=== PATIENT | female | born 1965 | race African-American/Black ===

== ENCOUNTER 2021-09-29 14:49 | Inpatient (IN) ==
[2021-09-29] MEDS ORDERED: IBUPROFEN 800 MG TABLET PO STA (15:17)
[2021-09-29] MEDS ORDERED: IBUPROFEN 800 MG TABLET ONE (15:18)
[2021-09-29] MEDS ORDERED: SODIUM CHLORIDE 0.9% 1,000 ML IV STA (16:31)
[2021-09-29 18:08] LABS: Basophils % 0.2 % (0.0-0.8); Eosinophils # 0.1 10*3/uL (0.0-0.87); Eosinophils % 1.7 % (0.00-10.9); Hematocrit 35.2 VOL% (35.7-47.0); Hemoglobin 11.1 GM/DL (12.0-16.0); Immature Granulocytes % 0.2 %; Immature Granulocytes Absolute 0.01 #; Lymphocytes # 0.9 10*3/uL (1.4-4.0); Lymphocytes % 17.7 % (21.3-54.2); Mean Corpuscular HGB Conc 31.5 GM/DL (32-36); Mean Corpuscular Volume 86.1 FL (87-102); Mean Platelet Volume 9.7 FL (9.6-12.0); Neutrophils % 60.2 % (38.7-73.9); Platelet Count 195 T/CUMM (130-400); Red Blood Count 4.09 MC/CUMM (3.8-5.5); Red Cell Distribution Width 13.8 % (9.3-17.3); White Blood Count 4.8 T/CUMM (4-12)
[2021-09-29] MEDS ORDERED: KETOROLAC 30 MG/1 ML VIAL IV STA (18:16)
[2021-09-29 18:28] LABS: Band Neutrophils 1 % (0-10); Eosinophils 2 % (0-10); Lymphocytes 24 % (20-55); Platelet Estimate Adequate; Total Cells Counted 100
[2021-09-29 18:31] LABS: Alanine Aminotransferase 24 U/L (13-56); Albumin 3.8 G/DL (3.4-5.0); Alkaline Phosphatase 83 U/L (45-117); Aspartate Amino Transferase 23 U/L (0-37); Bilirubin,Total < 0.39 MG/DL (0.20-1.00); Blood Urea Nitrogen 15 MG/DL (7-18); Calcium 8.8 MG/DL (8.5-10.1); Carbon Dioxide 27 MMOL/L (21-32); Chloride 106 MMOL/L (98-107); Glucose 82 MG/DL (74-106); Osmolality,Calculated 278.4 MOS/KG (273-304); Potassium 3.5 MMOL/L (3.5-5.1); Sodium 140 MMOL/L (136-145); Total Protein 6.8 G/DL (6.4-8.2)
[2021-09-29] MEDS ORDERED: GLUCAGON 1 MG VIAL IM PRN (19:11)
[2021-09-29] MEDS ORDERED: DEXTROSE 10% 250 ML BAG IV PRN (19:17)
[2021-09-29 19:49] LABS: Amorphous Crystals,Urine Occasional /HPF (Few); Bacteria,Urine Occasional /HPF (Few); Mucus,Urine Moderate /LPF (Occasional); RBC,Urine <1 /HPF (0-4); Squamous Epithelial Cell,Urine Occasional /HPF (0-10)
[2021-09-29 19:51] LABS: Urine Color Yellow (Yellow)
[2021-09-29 19:52] LABS: Bilirubin,Urine Negative (Negative); Blood, Urine Negative (Negative); Glucose,Urine (UA) Negative (Negative); Ketones,Urine Trace mg/dL (Negative); Nitrite,Urine Negative (Negative); Protein,Urine Negative (Negative); Urine Appearance Clear (Clear); Urine Specific Gravity 1.015 (1.001-1.035); Urine Urobilinogen 0.2 eU/dL (<2.0); Urine pH 5.5 (4.5-8.0)
[2021-09-29] MEDS: SODIUM CHLORIDE 0.9% 1,000 ML IV SCH (20:24)
[2021-09-29] MEDS: FAMOTIDINE 20 MG TABLET PO SCH (21:53)
[2021-09-29] MEDS: ENOXAPARIN 60 MG/0.6 ML SYRINGE SUBCUT SCH (21:53)
[2021-09-29] MEDS: LABETALOL 100 MG TABLET PO SCH (21:53)
[2021-09-30 05:01] LABS: Basophils % 0.8 % (0.0-0.8); Hematocrit 35.1 VOL% (35.7-47.0); Hemoglobin 10.9 GM/DL (12.0-16.0); Immature Granulocytes % 0.3 %; Immature Granulocytes Absolute 0.01 #; Lymphocytes # 1.7 10*3/uL (1.4-4.0); Lymphocytes % 43.6 % (21.3-54.2); Mean Corpuscular HGB Conc 31.1 GM/DL (32-36); Mean Platelet Volume 9.4 FL (9.6-12.0); Monocytes % 25.7 % (1.7-12.7); Neutrophils % 28.6 % (38.7-73.9); Platelet Count 173 T/CUMM (130-400); Red Blood Count 4.08 MC/CUMM (3.8-5.5); White Blood Count 3.9 T/CUMM (4-12)
[2021-09-30] MEDS: IBUPROFEN 400 MG TABLET PO PRN ×2 (05:08→21:56)
[2021-09-30 05:27] LABS: Alanine Aminotransferase 25 U/L (13-56); Albumin 3.2 G/DL (3.4-5.0); Alkaline Phosphatase 72 U/L (45-117); Aspartate Amino Transferase 22 U/L (0-37); Bilirubin,Total < 0.39 MG/DL (0.20-1.00); Blood Urea Nitrogen 11 MG/DL (7-18); Calcium 8.4 MG/DL (8.5-10.1); Carbon Dioxide 28 MMOL/L (21-32); Chloride 109 MMOL/L (98-107); Glucose 86 MG/DL (74-106); Osmolality,Calculated 278.3 MOS/KG (273-304); Potassium 3.3 MMOL/L (3.5-5.1); Sodium 141 MMOL/L (136-145); Total Protein 6.5 G/DL (6.4-8.2)
[2021-09-30 05:33] LABS: Lymphocytes 36 % (20-55); Platelet Estimate Adequate; Total Cells Counted 100
[2021-09-30] MEDS: ZINC GLUCONATE 50 MG TABLET PO SCH (09:32)
[2021-09-30] MEDS: LABETALOL 100 MG TABLET PO SCH ×2 (09:32→21:56)
[2021-09-30] MEDS: FAMOTIDINE 20 MG TABLET PO SCH ×2 (09:32→21:57)
[2021-09-30] MEDS: CHOLECALCIFEROL 1,000 UNIT TABLET PO SCH (09:32)
[2021-09-30] MEDS: ENOXAPARIN 60 MG/0.6 ML SYRINGE SUBCUT SCH ×2 (09:32→21:57)
[2021-09-30] MEDS: AZITHROMYCIN INJ 500 MG in SODIUM CHLORIDE 0.9% 250 ML IV SCH (09:44)
[2021-09-30] MEDS: DEXAMETHASONE 4 MG/1 ML VIAL IV SCH (09:46)
[2021-09-30] MEDS: SODIUM CHLORIDE 0.9% 1,000 ML IV SCH (17:20)
[2021-09-30] MEDS ORDERED: AMITRIPTYLINE 25 MG TABLET PO SCH (21:00)
[2021-10-01 06:18] LABS: Hematocrit 36.4 VOL% (35.7-47.0); Hemoglobin 11.6 GM/DL (12.0-16.0); Immature Granulocytes % 0.2 %; Immature Granulocytes Absolute 0.01 #; Lymphocytes # 1.9 10*3/uL (1.4-4.0); Lymphocytes % 44.6 % (21.3-54.2); Mean Corpuscular HGB Conc 31.9 GM/DL (32-36); Mean Corpuscular Volume 85.4 FL (87-102); Mean Platelet Volume 10.2 FL (9.6-12.0); Monocytes # 0.7 10*3/uL (0.11-0.8); Monocytes % 15.8 % (1.7-12.7); Neutrophils % 39.4 % (38.7-73.9); Platelet Count 207 T/CUMM (130-400); Red Blood Count 4.26 MC/CUMM (3.8-5.5); Red Cell Distribution Width 13.8 % (9.3-17.3); White Blood Count 4.2 T/CUMM (4-12)
[2021-10-01 06:33] LABS: Calcium 9.1 MG/DL (8.5-10.1); Potassium 3.3 MMOL/L (3.5-5.1)
[2021-10-01 06:41] LABS: Lymphocytes 41 % (20-55); Platelet Estimate Adequate; Total Cells Counted 100
[2021-10-01] MEDS ORDERED: DIAZEPAM 2 MG TABLET PO SCH (09:00)
[2021-10-01] MEDS ORDERED: POTASSIUM CHLORIDE 20 MEQ TABLET PO ONE (09:19)
[2021-10-01] MEDS: AZITHROMYCIN INJ 500 MG in SODIUM CHLORIDE 0.9% 250 ML IV SCH (09:52)
[2021-10-01] MEDS: LABETALOL 100 MG TABLET PO SCH (09:53)
[2021-10-01] MEDS: ZINC GLUCONATE 50 MG TABLET PO SCH (09:53)
[2021-10-01] MEDS: FAMOTIDINE 20 MG TABLET PO SCH (09:54)
[2021-10-01] MEDS: CHOLECALCIFEROL 1,000 UNIT TABLET PO SCH (09:54)
[2021-10-01] MEDS: DEXAMETHASONE 4 MG/1 ML VIAL IV SCH (09:55)
[2021-10-01] MEDS: ENOXAPARIN 60 MG/0.6 ML SYRINGE SUBCUT SCH (10:05)
[2021-10-01 12:08] VITALS: BP 131/86
== END 2021-10-01 13:25 | disposition home or self-care (01) | DRG 178 ==
LOC: N.ED 14:49 → N.EDINP 19:11 → N.5E 09-30 17:10
PROVIDERS: ADMIT Internal Medicine; ATTEND Internal Medicine